=== PATIENT | male | born 1985 | race Asian ===

== ENCOUNTER 2019-05-14 20:08 | Emergency (ER) | payer MEDICAID, OTHER ==
[~2019-05-14] VITALS: Ht 177.8 cm; Wt 74.5 kg
[~2019-05-14 20:08] MED LIST: HYDR-3965 PO; NO HOME MEDS; PENI500T2 PO; PRED20TA PO; TRIA15OI2 TOP
[2019-05-14 20:20] VITALS: BP 131/84
[2019-05-14] MEDS ORDERED: proparacaine 0.5% ophthalmic drops 15ml EACHEYE ONE (20:45)
[2019-05-14] MEDS ORDERED: ERYT1OIN6 EACHEYE (20:57)
== END 2019-05-14 21:10 | disposition home or self-care (01) ==
LOC: ER 20:09
DX: H10.9 Unspecified conjunctivitis (principal); F12.90 Cannabis use, unspecified, uncomplicated; Z88.8 Allergy status to other drugs, medicaments and biological substances; Z79.899 Other long term (current) drug therapy
CPT/HCPCS: 99283

== ENCOUNTER 2020-05-23 20:15 | Emergency (ER) | payer MEDICAID ==
[~2020-05-23] VITALS: Ht 180.3 cm; Wt 79.2 kg
[2020-05-23] MEDS ORDERED: TETanus/Pertussis (Acell)/Diphther VAC/PF (Tdap-Adult) 0.5ml syringe IMVAC ONE (21:35)
[2020-05-23] MEDS ORDERED: bacitracin 15gm ointment TP ONE (21:35)
--- NOTE | 2020-05-23 21:38 | NUR ---
Placed in C-collar. Pt to CT.
--- NOTE | 2020-05-23 21:47 | NUR ---
Pt returned from CT.
--- NOTE | 2020-05-23 22:02 | NUR ---
tetanus booster given, wound cleaned w/NS and washcloth, bacitracin applied
[2020-05-23] MEDS ORDERED: IBUP-1984 PO (22:06)
[2020-05-23] MEDS ORDERED: CYCL-1 PO (22:06)
[2020-05-23 22:19] VITALS: BP 150/103
== END 2020-05-23 22:28 | disposition home or self-care (01) ==
LOC: ER 22:25
DX: S01.01XA Laceration without foreign body of scalp, initial encounter (principal); M54.2 Cervicalgia; F12.90 Cannabis use, unspecified, uncomplicated; Z72.89 Other problems related to lifestyle; Z88.8 Allergy status to other drugs, medicaments and biological substances; Z79.899 Other long term (current) drug therapy; W22.8XXA Striking against or struck by other objects, initial encounter; Y93.89 Activity, other specified; Y92.89 Other specified places as the place of occurrence of the external cause; Y99.0 Civilian activity done for income or pay
CPT/HCPCS: 70450; 72125; 90471; 90715; 99285

== ENCOUNTER 2022-05-04 21:18 | Emergency (ER) | payer MEDICAID ==
[~2022-05-04] VITALS: Ht 180.3 cm; Wt 87.3 kg
[~2022-05-04 21:18] MED LIST changes: +CYCL-1 PO; +IBUP-1986 PO
[2022-05-04] MEDS ORDERED: NAPR-56 PO (21:27)
[2022-05-04] MEDS ORDERED: PENI250T2 PO (21:27)
[2022-05-04 21:56] VITALS: BP 145/100
== END 2022-05-04 21:58 | disposition home or self-care (01) ==
LOC: ER 21:18
DX: K08.89 Other specified disorders of teeth and supporting structures (principal); R14.0 Abdominal distension (gaseous); F12.90 Cannabis use, unspecified, uncomplicated; Z72.89 Other problems related to lifestyle; Z88.8 Allergy status to other drugs, medicaments and biological substances; Z79.2 Long term (current) use of antibiotics; Z79.899 Other long term (current) drug therapy
CPT/HCPCS: 99283

== ENCOUNTER 2022-06-28 14:25 | Emergency (ER) | payer MEDICAID ==
[~2022-06-28] VITALS: Ht 180.3 cm; Wt 83.0 kg
[2022-06-28 14:32] VITALS: BP 124/87
[2022-06-28] MEDS ORDERED: sulfamethoxazole/trimethoprim DS (800/160mg) tablet PO ONE (16:05)
[2022-06-28] MEDS ORDERED: SULF1TAB49 PO (16:19)
== END 2022-06-28 16:42 | disposition home or self-care (01) ==
LOC: ER 14:26
DX: L02.01 Cutaneous abscess of face (principal); F12.90 Cannabis use, unspecified, uncomplicated; Z72.89 Other problems related to lifestyle; Z88.8 Allergy status to other drugs, medicaments and biological substances; Z79.2 Long term (current) use of antibiotics; Z79.899 Other long term (current) drug therapy
CPT/HCPCS: 99283

== ENCOUNTER 2022-08-10 17:05 | Emergency (ER) | payer MEDICAID ==
[~2022-08-10] VITALS: Ht 180.3 cm; Wt 84.5 kg
[2022-08-10 17:45] VITALS: BP 152/112
[2022-08-10] MEDS ORDERED: ibuprofen tablet 400 MG TABLET PO ONE (18:45)
[2022-08-10 18:53] LABS: CLARITY,URINE CLEAR (Clear); COLOR,URINE STRAW (Yellow); GLUCOSE, URINE NEGATIVE (Neg); KETONES,URINE NEGATIVE (Neg); LEUKOCYTE ESTERASE ,URINE NEGATIVE (Neg); NITRITES, URINE NEGATIVE (Neg); OCCULT BLOOD,URINE NEGATIVE (Neg); PH,URINE 6.5 (4.8-8.0); PROTEIN,URINE NEGATIVE (Neg); UROBILINOGEN,URINE 0.2 E.U/dL (0.2-1.0)
[2022-08-10 18:56] LABS: UA COLLECTION TYPE CLN CATCH MIDSTREAM
== END 2022-08-10 18:55 | disposition home or self-care (01) ==
LOC: ER 17:06
DX: M53.3 Sacrococcygeal disorders, not elsewhere classified (principal); F12.90 Cannabis use, unspecified, uncomplicated; Z88.8 Allergy status to other drugs, medicaments and biological substances
CPT/HCPCS: 81003; 99283

== ENCOUNTER 2024-02-21 11:43 | Emergency (ER) | payer MEDICAID ==
[~2024-02-21] VITALS: Ht 180.3 cm; Wt 84.2 kg
[2024-02-21 12:02] VITALS: BP 148/108; PULSE 82; RESP 15; TEMP 98; O2SAT 98
== END 2024-02-21 13:22 | disposition home or self-care (01) ==
LOC: ER 11:43
DX: S93.401A Sprain of unspecified ligament of right ankle, initial encounter (principal); Z88.8 Allergy status to other drugs, medicaments and biological substances; Z79.1 Long term (current) use of non-steroidal anti-inflammatories (NSAID); Z79.2 Long term (current) use of antibiotics; Z79.899 Other long term (current) drug therapy; X50.1XXA Overexertion from prolonged static or awkward postures, initial encounter; Y93.89 Activity, other specified; Y92.89 Other specified places as the place of occurrence of the external cause; Y99.8 Other external cause status
CPT/HCPCS: 73610; 99283

== ENCOUNTER 2025-05-13 08:27 | Emergency (ER) | payer BC, MEDICAID ==
[~2025-05-13] VITALS: Ht 177.8 cm; Wt 84.1 kg
[2025-05-13 08:28] VITALS: TEMP 98.1
[2025-05-13 09:18] VITALS: BP 148/101; PULSE 72; RESP 18; O2SAT 98
--- NOTE | 2025-05-13 09:41 | Physician Documentation ---
HPI ~ General Chief Complaint: Tooth Problem Stated Complaint: ABCESS TOOTH Time Seen by MD: 09:04 Primary Medical Doctor: Amadeo TREJO Medical History of Present Illness HPI Comment This is a 39-year-old male who presents with left lower rear dental pain, patient reports broken tooth to the area, patient reports he has a dentist appointment in two weeks in his dentist recommended being on an antibiotic until the appointment. Patient reports pain is well controlled with ibuprofen. Reports no other acute symptoms or concerns including no fever. Medication Reconciliation Allergies: Coded Allergies: prednisone (Verified Allergy, Unknown, 05/13/25) Scheduled Amoxicillin Trihydrate* (Amoxicillin*), 1 CAP PO Q8H Cyclobenzaprine* (Cyclobenzaprine*), 1 TAB PO Q8H Ibuprofen (Ibuprofen), 1 TAB PO Q8H Penicillin V Potassium* (Penicillin VK*), 500 MG PO Q6H Prednisone* (Prednisone*), 3 TAB PO DAILY Triamcinolone Acetonide (Triamcinolone Acetonide), 1 APPLIC TOP Q12H Scheduled PRN Hydrocodone Bit/Acetaminophen 5/325 MG ([place] 5/325 MG), 1 TAB PO Q4H PRN for moderate or severe pain Miscellaneous Medications Home Med List (No Home Medications), (Reported) Past Medical History Past Medical History: No Pertinent History Past Surgical History: no surgical history Alcohol Use: Occasionally Drug Use: marijuana Lives with: Family Lives In: Home Occupation: employed Review of Systems ROS As stated above in the HPI, otherwise all systems are reviewed and negative. Physical Exam Vital Signs: Temperature: 98.1, Source: Temporal, Heart Rate: 72, Respiratory Rate: 18, BP: 148/101, Pulse Oximetry: 98, Weight: 84.090 Oxygen Flow Rate: 0 Physical Exam VITALS: Reviewed and as above. GENERAL: Alert, nontoxic appearing, no apparent distress. HEENT: Left lower 2nd from rear molar fractured and severely decayed, no gingival erythema or swelling, no fluctuance, no facial swelling, no elevation of the tongue, no submandibular swelling, no drooling RESPIRATORY: No increased work of breathing, no respiratory distress, speaking in full clear sentences Progress Results/Orders Results/Orders Vital Signs 05/13/25 05/13/25 08:28 09:18 Temp 98.1 Pulse 64 72 Resp 16 18 B/P (MAP) 147/100 148/101 (117) Pulse Ox 98 98 O2 Flow Rate 0 Medical Decision Making Findings This well appearing 39-year-old male presented with dental pain to the left lower rear molar. Based on history and physical exam I have low clinical suspicion for peritonsillar abscess, uvulitis, deep tissue space infection of the head/neck, or impending airway compromise. There was no submandibular swelling or elevation of the tongue, the uvula was midline, patient is able to swallow fluids and secretion without difficulty, there is no increased work of breathing or noisy breathing. Based on presentation I am concerned for odontogenic infection and antibiotic treatment with amoxicillin. Pain control with non-narcotic medications is appropriate at this time. Patient was otherwise well-appearing with remainder of physical exam benign, patient is appropriate for outpatient follow up with a dentist in two weeks as scheduled. Differential Dx:Considerations: Include: Alveolar fracture, Alveolar osteitis, ANUG, Facial Cellulitis, Periapical abscess, Peridontal abscess, Post-extraction bleeding, Pulpitis, Tooth avulsion, Tooth Fracture, Trigeminal neuralgia, Other (Dashawn's angina) Departure Time of Disposition: 09:40 Disposition: HOME / SELF CARE / HOMELESS Impression: Primary Impression: Toothache Condition: Improved Discharge Instructions: Dental Pain Additional Instructions: Please take the antibiotics as prescribed, you will take antibiotics for seven days then stop until three days before your dentist appointment then take the remaining three days of prescribed antibiotics. You may use ibuprofen and or Tylenol as directed by the [id number] packaging for pain. You may take up to 800 mg of ibuprofen 3 times a day for your dental pain. Please take ibupro fen with food to avoid stomach upset. Please follow up with your primary care provider in the next few days. Please return to the emergency department for any new or worsening concerning symptoms including but not limited to facial swelling, fever over 100.4 that does not lower with ibuprofen or Tylenol, or difficulty breathing or swallowing. Referrals: NO PRIMARY CARE PROVIDER (PCP) Prescriptions Amoxicillin Trihydrate* (Amoxicillin*) 500 Mg Capsule 1 CAP PO Q8H for 10 Days, #30 CAP Take for seven days, then stop until three days before dentist appointment, then take for the remaining three days. Prov: NIMA BRITO 05/13/25 Education Educated: Patient Educated regarding: diagnosis, treatment, prognosis, need for follow up Signature Scribe Signature: No scribe Attestation: The note accurately reflects work and decisions made by me.JOANNA Trent 05/13/25 09:52 NIMA BRITO May 13, 2025 09:41
[2025-05-13] MEDS ORDERED: AMOX500C2 PO (09:43)
== END 2025-05-13 09:49 | disposition home or self-care (01) ==
LOC: ER 08:28
DX: K08.89 Other specified disorders of teeth and supporting structures (principal); Z88.8 Allergy status to other drugs, medicaments and biological substances
CPT/HCPCS: 99283

== ENCOUNTER 2025-06-23 15:54 | Emergency (ER) | payer BC ==
[~2025-06-23] VITALS: Ht 177.8 cm; Wt 82.6 kg
[2025-06-23 16:11] VITALS: BP 148/91; PULSE 77; RESP 18; TEMP 98.4; O2SAT 98
[2025-06-23] MEDS ORDERED: amox tr/potassium clavulanate 875/125mg TAB PO ONE (17:40)
[2025-06-23] MEDS ORDERED: AMOX-580 PO (17:40)
--- NOTE | 2025-06-23 17:40 | Physician Documentation ---
HPI ~ General Chief Complaint: Tooth Problem Stated Complaint: TOOTH PAIN Time Seen by MD: 16:35 Primary Medical Doctor: Amadeo TREJO [facility] Source: patient Mode of Arrival: POV Exam Limitations: no limitations History of Present Illness HPI Comment 39-year-old male with left upper dental pain that started yesterday. He has had no recent dental procedures. States the tooth is worse when he tries to eat on that side or with drinking hot or cold liquids. No facial swelling, sore throat, fever or chills. Medication Reconciliation Allergies: Coded Allergies: prednisone (Verified Allergy, Unknown, 06/23/25) Scheduled Amox Tr/Potassium Clavulanate 875/125 MG (Augmentin 875/125 MG), 1 TAB PO Q12H Cyclobenzaprine* (Cyclobenzaprine*), 1 TAB PO Q8H Ibuprofen (Ibuprofen), 1 TAB PO Q8H Penicillin V Potassium* (Penicillin VK*), 500 MG PO Q6H Prednisone* (Prednisone*), 3 TAB PO DAILY Triamcinolone Acetonide (Triamcinolone Acetonide), 1 APPLIC TOP Q12H Scheduled PRN Hydrocodone Bit/Acetaminophen 5/325 MG ([place] 5/325 MG), 1 TAB PO Q4H PRN for moderate or severe pain Miscellaneous Medications Home Med List (No Home Medications), (Reported) Past Medical History Past Medical History: No Pertinent History Past Surgical History: no surgical history Alcohol Use: Occasionally Drug Use: marijuana Lives with: Family Lives In: Home Occupation: employed Review of Systems All Other Systems at this time: Reviewed and Negative Physical Exam Vital Signs: Temperature: 98.4, Source: Temporal, Heart Rate: 77, Respiratory Rate: 18, BP: 148/91, Pulse Oximetry: 98, Weight: 82.630 Oxygen Flow Rate: 0 Physical Exam General Appearance: Alert, WD/WN. NAD. HEENT: NCAT, PERRL, EOMI. No facial swelling, left upper premolar gingiva on the buccal side is erythematous with tender to palpation no fluctuance. Posterior pharyngeal wall normal Neck: Supple, trachea midline. No cervical LAD. Cardiovascular: RRR. No m/r/g. Lungs: CTAB. Breathing unlabored Extremities: Normal inspection. No edema. Skin: Warm/dry, normal color Neurological: Alert and oriented x4, normal gait. Psychiatric: Affect congruent with mood. Progress Results/Orders Results/Orders Completed Orders - MIRACLE ORTIZ Amox Tr/Potassium Clavulanate (Augmentin (06/23/25 17:40) Vital Signs 06/23/25 16:11 Temp 98.4 Pulse 77 Resp 18 B/P (MAP) 148/91 Pulse Ox 98 O2 Flow Rate 0 Medical Decision Making Differential Dx:Considerations: Include: Alveolar fracture, Alveolar osteitis, ANUG, Facial Cellulitis, Periapical abscess, Peridontal abscess, Post-extraction bleeding, Pulpitis, Tooth avulsion, Tooth eruption, Tooth Fracture, Trigeminal neuralgia, Tooth subluxation Departure Time of Disposition: 17:40 Disposition: 01 HOME / SELF CARE / HOMELESS Impression: Primary Impression: Dental abscess Condition: Stable Discharge Instructions: Dental Abscess Additional Instructions: ANTIBIOTIC AND F/U WITH DENTIST SALT WATER RINSES NEXT DOSAGE OF ANTIBIOTIC DUE TOMORROW MORNING WE GAVE YOU DOSAGE HERE Referrals: NO PRIMARY CARE PROVIDER (PCP) Prescriptions Amox Tr/Potassium Clavulanate 875/125 MG (Augmentin 875/125 MG) 875 Mg-125 Mg Tablet 1 TAB PO Q12H for 10 Days, #20 TAB Prov: MIRACLE ORTIZ 06/23/25 Education Educated: Patient Educated regarding: diagnosis, treatment, need for follow up Signature Scribe Signature: x Attestation: MIRACLE Morfin Jun 23, 2025 17:40
== END 2025-06-23 17:50 | disposition home or self-care (01) ==
LOC: ER 15:55
DX: K04.7 Periapical abscess without sinus (principal); Z88.8 Allergy status to other drugs, medicaments and biological substances
CPT/HCPCS: 99283